=== PATIENT | male | born 1980 | race African-American/Black ===

== ENCOUNTER 2018-12-08 18:55 | Inpatient (IN) | payer OTHER ==
[~2018-12-08] VITALS: Ht 177.8 cm; Wt 75.3 kg
[2018-12-08] MEDS ORDERED: SODIUM CHLORIDE 0.9% 1,000 ML IV ONE (22:52)
[2018-12-08] MEDS ORDERED: KETOROLAC 30MG/ML VIAL IV STA (22:52)
[2018-12-08 23:42] LABS: BASOPHILS % 0.1 % (0.0-2.0); EOSINOPHILS % 0.2 % (0.0-5.0); HEMATOCRIT. 31.3 % (42.0-52.0); HEMOGLOBIN. 10.4 g/dL (14.0-18.0); MEAN CORPUSCULAR HEMOGLOBIN 24.7 pg (28.0-32.0); MEAN CORPUSCULAR VOLUME 74.6 fL (80.0-94.0); MEAN PLATELET VOLUME 7.9 fl (7.4-10.4); MONOCYTES % 12.1 % (2.0-8.0); NEUTROPHILS % 33.6 % (40.0-76.0); PLATELET 163 x1000/uL (130-400); RED BLOOD CELL COUNT 4.19 mill/uL (4.7-6.1); RED CELL DISTRIBUTION WIDTH 18.6 % (11.6-14.6)
[2018-12-08 23:48] LABS: CHLORIDE 90 mEq/L (98-107)
[2018-12-08 23:50] LABS: INR 1.1; PROTHROMBIN TIME 11.1 sec (9.6-11.0)
[2018-12-09] MEDS ORDERED: SODIUM CHLORIDE 0.9% 500 ML IV ONE (00:45)
[2018-12-09 01:10] LABS: CLARITY URINE CLEAR (CLEAR); COLOR URINE YELLOW (YELLOW); KETONES URINE TRACE (NEGATIVE); LEUKOCYTE ESTERASE URINE NEGATIVE (NEGATIVE); NITRITE URINE NEGATIVE (NEGATIVE); OCCULT BLOOD URINE NEGATIVE (NEGATIVE); PH URINE 5.5 (4.5-8.0); PROTEIN URINE 1+ (NEGATIVE); SPECIFIC GRAVITY URINE 1.025 (1.005-1.030); UROBILINOGEN URINE 0.2 E.U./dL (0.2-1.0)
[2018-12-09 04:00] VITALS: BP 123/71
[2018-12-09] MEDS ORDERED: LACTULOSE 20G/30ML UDC PO SCH (04:07)
[2018-12-09 04:55] VITALS: BP 123/71
[2018-12-09] MEDS ORDERED: SODIUM CHLORIDE 0.9% 500 ML IV SCH (05:45)
[2018-12-09] MEDS ORDERED: ACET-2178 PO (06:08)
[2018-12-09] MEDS ORDERED: OXYC5CAP12 PO (06:08)
[2018-12-09] MEDS ORDERED: MORP15TA67 PO (06:08)
[2018-12-09] MEDS ORDERED: ASPI325T85 PO (06:08)
[2018-12-09] MEDS ORDERED: ONDANSETRON HCL 4MG/2ML INJ IV PRN (06:15)
[2018-12-09] MEDS ORDERED: DIPHENHYDRAMINE 50MG/ML VIAL IV PRN (06:15)
[2018-12-09] MEDS ORDERED: MAGNESIUM/ALUMINUM HYDROXIDE/SIMETHICONE 30ML UDC PO PRN (06:15)
[2018-12-09] MEDS ORDERED: GUAIFENESIN 200MG/10ML SUGAR FREE UDC PO PRN (06:15)
[2018-12-09] MEDS ORDERED: LORAZEPAM 2MG/ML CPJ IV PRN (06:15)
[2018-12-09] MEDS ORDERED: ACETAMINOPHEN 325MG TABLET PO PRN (06:15)
[2018-12-09] MEDS ORDERED: CLONIDINE 0.1MG TABLET PO PRN (06:15)
[2018-12-09] MEDS ORDERED: IPRATROPIUM/ALBUTEROL 0.5-3(2.5)MG/3ML NEB HHN PRN (06:30)
[2018-12-09 08:00] VITALS: BP 100/73
[2018-12-09] MEDS: ENOXAPARIN 40MG/0.4ML SYR SUBCUT SCH (08:34)
[2018-12-09] MEDS: DOCUSATE SODIUM 100MG CAPSULE PO PRN ×2 (08:34→21:48)
[2018-12-09] MEDS: HYDROMORPHONE HCL/PF 2MG/ML CPJ IV PRN ×5 (08:35→22:14)
[2018-12-09] MEDS ORDERED: NA PHOS,M-B/NA PHOS,DI-BA ENEMA 118ML PR PRN (09:00)
[2018-12-09 12:00] VITALS: BP 123/74
[2018-12-09] MEDS: SODIUM CHLORIDE 0.9% INJ 3ML FLUSH IVF SCH ×2 (12:39→21:49)
[2018-12-09] MEDS: SODIUM CHLORIDE 0.45% 1,000 ML IV SCH ×2 (12:39→21:49)
[2018-12-09 16:00] VITALS: BP 115/72
[2018-12-10] VITALS: BP 122/52
[2018-12-10] MEDS: HYDROCODONE/ACETAMINOPHEN 10/325MG TABLET PO PRN ×3 (01:44→14:10)
[2018-12-10] MEDS: HYDROMORPHONE HCL/PF 2MG/ML CPJ IV PRN ×5 (02:53→21:04)
[2018-12-10 04:00] VITALS: BP 120/53
[2018-12-10] MEDS: SODIUM CHLORIDE 0.9% INJ 3ML FLUSH IVF SCH ×3 (06:47→21:03)
[2018-12-10 07:52] LABS: CHLORIDE 96 mEq/L (98-107)
[2018-12-10 08:00] VITALS: BP 115/56
[2018-12-10 08:27] LABS: HEMATOCRIT. 27.2 % (42.0-52.0); MEAN CORPUSCULAR HEMOGLOBIN 24.7 pg (28.0-32.0); MEAN CORPUSCULAR VOLUME 74.7 fL (80.0-94.0); MEAN PLATELET VOLUME 7.6 fl (7.4-10.4); PLATELET 162 x1000/uL (130-400); RED BLOOD CELL COUNT 3.64 mill/uL (4.7-6.1); RED CELL DISTRIBUTION WIDTH 18.7 % (11.6-14.6)
[2018-12-10] MEDS: DOCUSATE SODIUM 100MG CAPSULE PO PRN ×2 (08:35→18:45)
[2018-12-10] MEDS: ENOXAPARIN 40MG/0.4ML SYR SUBCUT SCH (08:35)
[2018-12-10] MEDS: SODIUM CHLORIDE 0.45% 1,000 ML IV SCH (08:44)
[2018-12-10 12:00] VITALS: BP 113/58
[2018-12-10 13:55] LABS: PLATELET ESTIMATE NORMAL
[2018-12-10 16:00] VITALS: BP 115/59
[2018-12-10 20:00] VITALS: BP 101/59
[2018-12-11] VITALS (8 sets, daily range): BP systolic 113–135; BP diastolic 58–74
[2018-12-11] MEDS: HYDROMORPHONE HCL/PF 2MG/ML CPJ IV PRN ×6 (00:23→20:30)
[2018-12-11] MEDS: SODIUM CHLORIDE 0.45% 1,000 ML IV SCH ×2 (00:25→10:47)
[2018-12-11] MEDS: SODIUM CHLORIDE 0.9% INJ 3ML FLUSH IVF SCH ×2 (06:39→14:19)
[2018-12-11] MEDS: ENOXAPARIN 40MG/0.4ML SYR SUBCUT SCH (10:13)
== END 2018-12-11 20:45 | disposition home or self-care (01) | DRG 392 ==
LOC: ER 18:55 → 7WST 12-09 03:16 → ENRESERV 12-09 03:59
PROVIDERS: ADMIT Internal Medicine; ATTEND Internal Medicine
DX: R10.9 Unspecified abdominal pain (principal); C90.00 Multiple myeloma not having achieved remission; E87.1 Hypo-osmolality and hyponatremia; D64.9 Anemia, unspecified; E86.0 Dehydration; G89.29 Other chronic pain; K59.00 Constipation, unspecified; R74.0 Nonspecific elevation of levels of transaminase and lactic acid dehydrogenase [LDH]; Z79.82 Long term (current) use of aspirin; Z92.21 Personal history of antineoplastic chemotherapy; Z79.899 Other long term (current) drug therapy
CPT/HCPCS: 36415; 74176; 81003; 99285; J1170; J1650; J1885; J7030